=== PATIENT | male | born 1935 | race Caucasian/White ===

== ENCOUNTER 2020-11-07 15:05 | Inpatient (IN) ==
[2020-11-07] MEDS ORDERED: Acetaminophen 325 MG TABLET PO PRN (21:27)
[2020-11-07] MEDS ORDERED: Ondansetron 4 MG/2 ML VIAL IVP PRN (21:27)
[2020-11-07] MEDS ORDERED: Naloxone 0.4 MG/ML INJ IVP PRN (21:27)
[2020-11-07] MEDS ORDERED: D5% in 0.45% NACL 1,000 ML IVC SCH (21:30)
[2020-11-07] MEDS ORDERED: Haloperidol Lactate 5 MG/ML VIAL IVP PRN (21:35)
[2020-11-08 05:55] LABS: Hematocrit 50.8 % (37.5-50.1); Hemoglobin 16.3 g/dL (12.9-16.9); Mean Corpuscular HGB Conc 32.1 g/dL (31.6-35.5); Mean Corpuscular Hemoglobin 29.9 pg (28.0-33.3); Mean Platelet Volume 11.8 fL (9.4-12.4); Platelet Count 131 K/mcL (140-400); Red Blood Count 5.46 M/mcL (4.19-5.50); Red Cell Distribution Width 13.5 % (11.5-14.5)
[2020-11-08] MEDS ORDERED: *HR* Enoxaparin 40 MG/0.4 ML SYRINGE SQ SCH (06:00)
[2020-11-08 06:18] LABS: BUN/Creatinine Ratio 26 (6-26); Blood Urea Nitrogen 28 mg/dL (8-23); Calcium 7.7 mg/dL (8.6-10.3); Carbon Dioxide 31 mEq/L (23-29); Chloride 106 mEq/L (98-107); Glucose 142 mg/dL (70-105); Magnesium 2.7 mg/dL (1.6-2.6); Osmolality,Calculated 306 (280-300); Potassium 3.8 mEq/L (3.5-5.1); Sodium 144 mEq/L (136-145); eGFR For African Americans > 60 (> 60); eGFR For Non-African Americans > 60 (> 60)
[2020-11-08] MEDS ORDERED: *HR* LORazepam 2 MG/ML VIAL IM STA (07:52)
[2020-11-08] MEDS ORDERED: Haloperidol Lactate 5 MG/ML VIAL IM ONE (08:28)
[2020-11-08 08:47] LABS: C-Reactive Protein 83 mg/L (Less than 10)
[2020-11-08] MEDS ORDERED: D5% in 0.45% NACL 1,000 ML IVC SCH (08:52)
[2020-11-08] MEDS ORDERED: Dexamethasone 4 MG/ML VIAL PO SCH (09:00)
[2020-11-08] MEDS ORDERED: Metoprolol XL (24 HR) Succ 25 MG TAB.ER.24H PO SCH (09:00)
[2020-11-08 09:05] LABS: Ferritin 244 ng/mL (20-250)
[2020-11-08 09:59] VITALS: BP 126/75
[2020-11-08] MEDS ORDERED: QUEtiapine Fumarate 25 MG TABLET PO SCH (21:00)
== END 2020-11-08 11:25 | disposition other institution (70) | DRG 178 ==
LOC: INPPIK 20:27
PROVIDERS: ADMIT Family Medicine; ATTEND Family Medicine